=== PATIENT | female | born 1995 | race American Indian/Alaskan Native ===

== ENCOUNTER 2018-08-05 11:54 | Emergency (ER) | payer OTHER ==
--- NOTE | 2018-08-05 13:02 | Emergency Department Report ---
- General Chief complaint: Skin/Abscess/Foreign Body Stated complaint: CHEST PAIN/R BREAST LUMP Time Seen by Provider: 08/05/18 12:45 Source: patient Mode of arrival: Ambulatory Limitations: No Limitations - History of Present Illness Initial comments: 23-year-old female presents to ED with painful knot underneath her right breast 2 days. Patient denies drainage, fever. MD complaint: abscess/boil -: days(s) (2) Location: chest (R breast) Severity: mild Quality: dull Consistency: constant Improves with: none Worsens with: palpation Associated symptoms: denies other symptoms Treatments Prior to Arrival: none - Related Data Previous Rx's Medication Instructions Recorded Last Taken Type metroNIDAZOLE [Flagyl] 500 mg PO BID #14 tablet 12/06/13 Unknown Rx Ibuprofen [Motrin 800 MG tab] 800 mg PO Q6H PRN #30 tablet 08/12/14 Unknown Rx oxyCODONE /ACETAMINOPHEN [Percocet 1 tab PO Q4HR #30 tablet 08/12/14 Unknown Rx 5/325 mg] HYDROcodone/APAP 5-325 [[place] 1 each PO Q6HR PRN #14 tablet 02/17/15 Unknown Rx 5/325] Ibuprofen [Motrin] 800 mg PO Q8HR PRN #60 tablet 02/17/15 Unknown Rx Fluconazole [Diflucan TAB] 150 mg PO ONCE #1 tablet 08/05/18 Unknown Rx Naproxen [Naprosyn] 500 mg PO BID #20 tablet 08/05/18 Unknown Rx Sulfamethoxazole/Trimethoprim 1 each PO BID #14 tablet 08/05/18 Unknown Rx [Bactrim DS TAB] Allergies Allergy/AdvReac Type Severity Reaction Status Date / Time No Known Allergies Allergy Verified 08/05/18 11:55 Abscess Boil HPI - HPI Chief Complaint: Skin/Abscess/Foreign Body Stated Complaint: CHEST PAIN/R BREAST LUMP Time Seen by Provider: 08/05/18 12:45 Home Medications: Previous Rx's Medication Instructions Recorded Last Taken Type metroNIDAZOLE [Flagyl] 500 mg PO BID #14 tablet 12/06/13 Unknown Rx Ibuprofen [Motrin 800 MG tab] 800 mg PO Q6H PRN #30 tablet 08/12/14 Unknown Rx oxyCODONE /ACETAMINOPHEN [Percocet 1 tab PO Q4HR #30 tablet 08/12/14 Unknown Rx 5/325 mg] HYDROcodone/APAP 5-325 [[place] 1 each PO Q6HR PRN #14 tablet 02/17/15 Unknown Rx 5/325] Ibuprofen [Motrin] 800 mg PO Q8HR PRN #60 tablet 02/17/15 Unknown Rx Fluconazole [Diflucan TAB] 150 mg PO ONCE #1 tablet 08/05/18 Unknown Rx Naproxen [Naprosyn] 500 mg PO BID #20 tablet 08/05/18 Unknown Rx Sulfamethoxazole/Trimethoprim 1 each PO BID #14 tablet 08/05/18 Unknown Rx [Bactrim DS TAB] Allergies/Adverse Reactions: Allergies Allergy/AdvReac Type Severity Reaction Status Date / Time No Known Allergies Allergy Verified 08/05/18 11:55 ED Review of Systems ROS: Stated complaint: CHEST PAIN/R BREAST LUMP Other details as noted in HPI Comment: All other systems reviewed and negative Constitutional: denies: chills, fever Gastrointestinal: denies: nausea, vomiting Skin: other (abscess) ED Past Medical Hx - Past Medical History Previous Medical History?: No Hx Hypertension: No Hx Heart Attack/AMI: No Hx Diabetes: No Hx Deep Vein Thrombosis: No Hx Liver Disease: No Hx Renal Disease: No Hx Sickle Cell Disease: No Hx Seizures: No Hx Asthma: No Hx COPD: No Hx HIV: No - Surgical History Additional Surgical History: X2 - Social History Smoking Status: Current Every Day Smoker Substance Use Type: Alcohol, Marijuana - Medications Home Medications: Home Medications Medication Instructions Recorded Confirmed Last Taken Type metroNIDAZOLE [Flagyl] 500 mg PO BID #14 tablet 12/06/13 08/12/14 Unknown Rx Ibuprofen [Motrin 800 MG tab] 800 mg PO Q6H PRN #30 tablet 08/12/14 Unknown Rx oxyCODONE /ACETAMINOPHEN [Percocet 1 tab PO Q4HR #30 tablet 08/12/14 Unknown Rx 5/325 mg] HYDROcodone/APAP 5-325 [[place] 1 each PO Q6HR PRN #14 tablet 02/17/15 Unknown Rx 5/325] Ibuprofen [Motrin] 800 mg PO Q8HR PRN #60 tablet 02/17/15 Unknown Rx Fluconazole [Diflucan TAB] 150 mg PO ONCE #1 tablet 08/05/18 Unknown Rx Naproxen [Naprosyn] 500 mg PO BID #20 tablet 08/05/18 Unknown Rx Sulfamethoxazole/Trimethoprim 1 each PO BID #14 tablet 08/05/18 Unknown Rx [Bactrim DS TAB] ED Physical Exam - General Limitations: No Limitations General appearance: alert, in no apparent distress - Head Head exam: Present: atraumatic, normocephalic - Eye Eye exam: Present: normal appearance - ENT ENT exam: Present: mucous membranes moist - Neck Neck exam: Present: normal inspection - Respiratory Respiratory exam: Present: normal lung sounds bilaterally. Absent: respiratory distress - Cardiovascular Cardiovascular Exam: Present: normal rhythm, bradycardia - GI/Abdominal GI/Abdominal exam: Present: soft. Absent: distended, tenderness - Extremities Exam Extremities exam: Present: normal inspection - Neurological Exam Neurological exam: Present: alert, oriented X3 - Psychiatric Psychiatric exam: Present: normal affect, normal mood - Skin Skin exam: Present: other (small area of induration under right breast, tender, mild erythema, no drainage present) ED Course Vital Signs 08/05/18 12:22 Temperature 98.3 F Pulse Rate 57 L Respiratory 20 Rate Blood Pressure 121/55 O2 Sat by Pulse 100 Oximetry ED Medical Decision Making - Differential Diagnosis cellulitis, abscess Critical care attestation.: If time is entered above; I have spent that time in minutes in the direct care of this critically ill patient, excluding procedure time. ED Disposition Clinical Impression: Cellulitis of right breast Disposition: DC-01 TO HOME OR SELFCARE Is pt being admited?: No Condition: Stable Instructions: Cellulitis (ED) Prescriptions: Sulfamethoxazole/Trimethoprim [Bactrim DS TAB] 1 each PO BID #14 tablet Fluconazole [Diflucan TAB] 150 mg PO ONCE #1 tablet Naproxen [Naprosyn] 500 mg PO BID #20 tablet Referrals: [facility] [Provider Group] - 3-5 Days Time of Disposition: 13:02
== END 2018-08-05 13:20 | disposition home or self-care (01) ==
LOC: ED 11:54
CPT/HCPCS: 99282

== ENCOUNTER 2018-08-19 13:44 | Emergency (ER) | payer OTHER ==
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
[2018-08-19] MEDS ORDERED: TORADOL IM ONE (16:26)
[2018-08-19] MEDS ORDERED: FLEXERIL PO ONE (16:26)
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
[2018-08-19 19:55] VITALS: BP 126/66
== END 2018-08-19 18:21 | disposition home or self-care (01) ==
LOC: ED 13:44
DX: M48.02 Spinal stenosis, cervical region (principal); M54.89 Other dorsalgia; V89.2XXA Person injured in unspecified motor-vehicle accident, traffic, initial encounter; Y93.89 Activity, other specified; Y92.410 Unspecified street and highway as the place of occurrence of the external cause; Y99.8 Other external cause status
CPT/HCPCS: 36415; 72040; 72072; 72100; 72125; 84703; 96372; 99284; J1885

== ENCOUNTER 2021-07-01 17:30 | Outpatient (CLI) | payer MEDICAID ==
[2021-07-01 17:55] VITALS: BP 121/72
[2021-07-01] MEDS ORDERED: LACTATED RINGERS 1,000 ML IV ONE (18:09)
--- NOTE | 2021-07-01 19:25 | Ultrasound Report ---
ULTRASOUND BIOPHYSICAL PROFILE INDICATION / CLINICAL INFORMATION: f/u fall. Pelvic pain and swelling injury COMPARISON: None available. FINDINGS: BREATHING MOVEMENT = 2 GROSS BODY MOVEMENT = 2 TONE = 2 QUALITATIVE AMNIOTIC FLUID VOLUME = 2 TOTAL BIOPHYSICAL SCORE = 8/8 AMNIOTIC FLUID INDEX (cm) = 11.6 PRESENTATION: Breech. HEART RATE (beats per minute): 159 IMPRESSION: 1. biophysical profile = 12/28 the placenta appears posterior and fundal Signer Name: Terrell Gutierres MD Signed: 07/01/2021 7:20 PM Workstation Name: [id number]
== END 2021-07-01 21:25 | disposition home or self-care (01) ==
LOC: TRG 17:30 → APU 17:51 → TRG 21:25
PROVIDERS: ATTEND Obstetrics & Gynecology
DX: Z34.93 Encounter for supervision of normal pregnancy, unspecified, third trimester (principal); Z3A.30 30 weeks gestation of pregnancy
CPT/HCPCS: 76815; 76819

== ENCOUNTER 2021-08-16 22:16 | Inpatient (IN) | payer MEDICAID ==
[2021-08-16] MEDS ORDERED: LACTATED RINGERS 1,000 ML ONE (22:35)
[2021-08-16] MEDS ORDERED: BICITRA ORAL LIQD 30ML PO ONE (23:18)
[2021-08-16] MEDS ORDERED: FAMOTIDINE 20 MG/2 ML INJ IV ONE (23:18)
[2021-08-16] MEDS ORDERED: METOCLOPRAMIDE 10 MG/2 ML INJ IV ONE (23:18)
[2021-08-16] MEDS ORDERED: fentaNYL 100 MCG/2 ML INJ IV PRN (23:22)
[2021-08-16] MEDS ORDERED: TERBUTALINE 1 MG/1 ML INJ SUB-Q PRN (23:22)
[2021-08-16] MEDS ORDERED: ACETAMINOPHEN 325 MG TAB PO PRN (23:22)
[2021-08-16] MEDS ORDERED: LIDOCAINE (2%) 20 MG/1 ML VIAL 20 ML MDV INFILTRATI ONE (23:22)
[2021-08-16] MEDS ORDERED: METHYLERGONOVINE MALEATE 0.2 MG/ML VIAL IM PRN (23:22)
[2021-08-16] MEDS ORDERED: CARBOPROST TROMETHAMINE 250 MCG/1 ML INJ IM PRN (23:22)
[2021-08-16] MEDS ORDERED: miSOPROStol 200 MCG TAB PR PRN (23:22)
[2021-08-16] MEDS ORDERED: ePHEDrine SULFATE 50 MG/1 ML INJ IV PRN (23:22)
[2021-08-16] MEDS ORDERED: LOPERAMIDE 2 MG CAP PO PRN (23:22)
[2021-08-16] MEDS ORDERED: NalbUPHINE 10 MG/1 ML INJ IV PRN (23:22)
[2021-08-16] MEDS ORDERED: OXYTOCIN 10 UNIT/1 ML INJ IM PRN (23:22)
[2021-08-16 23:27] LABS: Hematocrit 35.4 % (30.3-42.9); Hemoglobin 11.4 gm/dl (10.1-14.3); Mean Corpuscular HGB Conc 32 % (30-34); Mean Corpuscular Volume 82 fl (79-97); Platelet Count 186 K/mm3 (140-440); Red Blood Count 4.34 M/mm3 (3.65-5.03); Red Cell Distribution Width 15.5 % (13.2-15.2)
[2021-08-16] MEDS ORDERED: LACTATED RINGERS 1,000 ML IV SCH ×2 (23:30)
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
[2021-08-16] MEDS ORDERED: ceFAZolin/Water 2 GM/20 ML 2 GM/20 ML SYRINGE IV NR (23:45)
[2021-08-16] MEDS ORDERED: OXYTOCIN DRIP 30 UNITS/500 ML BAG IV SCH (23:45)
[2021-08-16 23:49] LABS: Alanine Aminotransferase 13 units/L (7-56); Albumin 3.3 g/dL (3.9-5); Blood Urea Nitrogen 5 mg/dL (7-17); Calcium 8.8 mg/dL (8.4-10.2); Hemolysis Index 4
[2021-08-16 23:50] LABS: BUN/Creatinine Ratio 10
[2021-08-17] MEDS ORDERED: ONDANSETRON 4 MG/2 ML INJ IV PRN ×2 (00:38→01:43)
[2021-08-17] MEDS ORDERED: PROMETHAZINE 25 MG TAB PO PRN (00:38)
[2021-08-17] MEDS ORDERED: PROMETHAZINE 25 MG RECT SUPP PR PRN (00:38)
[2021-08-17] MEDS ORDERED: NalbUPHINE 10 MG/1 ML INJ IV PRN (00:38)
[2021-08-17] MEDS ORDERED: diphenhydrAMINE 50 MG/ML VIAL IV PRN (00:38)
[2021-08-17] MEDS ORDERED: NALOXONE 0.4 MG/1 ML INJ IV PRN ×2 (00:38→01:43)
--- NOTE | 2021-08-17 01:01 | Anesthesia Day of Surgery ---
Anesthesia Day of Surgery - Day of Surgery Patient Examined: Yes Patient H&P Reviewed: Yes Patient is NPO: Yes Beta Blockers: No Cardiac Clearance: No Pulmonary Clearance: No Carmine's Test: N/A
--- NOTE | 2021-08-17 01:02 | Anesthesia Consultation ---
Anesthesia Consult and Med Hx Date of service: 08/17/21 - Airway Anesthetic Teeth Evaluation: Good ROM Head & Neck: Adequate Mental/Hyoid Distance: Adequate Mallampati Class: Class III Intubation Access Assessment: Possibly Difficult - Pulmonary Exam CTA: Yes - Cardiac Exam Cardiac Exam: RRR - Pre-Operative Health Status ASA Pre-Surgery Classification: ASA2, Emergency Proposed Anesthetic Plan: Spinal Nerve Block: TAP - Pulmonary Hx Smoking: No Hx Asthma: Yes COPD: No Hx Pneumonia: No Hx Sleep Apnea: No - Cardiovascular System Hx Hypertension: No Hx Coronary Artery Disease: No Hx Heart Attack/AMI: No Hx Angina: No - Central Nervous System Hx Seizures: No Hx Psychiatric Problems: No - Gastrointestinal Hx Gastroesophageal Reflux Disease: No - Endocrine Hx Renal Disease: No Hx End Stage Renal Disease: No Hx Liver Disease: No Hx Insulin Dependent Diabetes: No Hx Non-Insulin Dependent Diabetes: No Hx Hypothyroidism: No Hx Hyperthyroidism: No - Hematic Hx Anemia: No Hx Sickle Cell Disease: No - Other Systems Hx Alcohol Use: No Hx Obesity: Yes - Additional Comments Anesthesia Medical History Comments: previous c/s x2
[2021-08-17] MEDS ORDERED: BUPIVACAINE/PF (0.5%) 5 MG/1 ML 30 ML VIAL INFILTRATI ONE (01:08)
[2021-08-17] MEDS ORDERED: dexAMETHasone 20 MG/5 ML VIAL ONE (01:08)
[2021-08-17] MEDS ORDERED: ONDANSETRON 4 MG/2 ML INJ ONE (01:08)
[2021-08-17] MEDS ORDERED: SENNOSIDES 8.6 MG TAB PO PRN (01:43)
[2021-08-17] MEDS ORDERED: WITCH HAZEL/ GLYCERIN PAD TP PRN (01:43)
[2021-08-17] MEDS ORDERED: LANOLIN/ZINC/DIMETHICONE (LANSINOH) 7 GM TP PRN (01:43)
[2021-08-17] MEDS ORDERED: HYDROCORTISONE 25 MG RECTAL SUPP PR PRN (01:43)
[2021-08-17] MEDS ORDERED: IBUPROFEN 600 MG TAB PO PRN (01:43)
[2021-08-17] MEDS ORDERED: MAGNESIUM HYDROXIDE (MOM) ORAL LIQD UDC PO PRN (01:43)
--- NOTE | 2021-08-17 01:53 | Ultrasound Report ---
US OB BPP wo non-stress, US OB limited INDICATION / CLINICAL INFORMATION: BPP, ALE, PLACENTA COMPARISON: None available. TECHNIQUE: Using a transcutaneous probe, multiple grayscale, color Doppler, and spectral Doppler imag es of the uterus and fetus were captured and stored. In addition, biophysical profile was performed with scoring of multiple biophysical variables includi ng respiratory motion, motion, posture and tone, as well as qualitative amniotic fluid vo lume was performed. FINDINGS: The biophysical profile score is 8 of 8, within normal limits. heart rate 145 bpm. Based on last menstrual period of 11/29/2020, the estimated date of delivery is 09/05/2021 with estimat ed gestational age of 37 weeks 1 day. Single intrauterine fetus in cephalic position is demonstrated. heart rate 145 bpm. The amniotic fluid index is within normal limits measuring 7.4 cm. Fundal grade 2 placenta is demonstrated. The seminal margin appears intact. IMPRESSION: 1. Normal biophysical profile score, 8 out of 8. 2. Fundal placenta without evidence of placental abruption. 3. Amniotic fluid index low end of normal. Signer Name: Evin Allen II, MD Signed: 08/17/2021 1:48 AM Workstation Name: [id number]
[2021-08-17] MEDS ORDERED: OXYTOCIN DRIP 30 UNITS/500 ML BAG IV SCH (02:00)
[2021-08-17] MEDS ORDERED: PHENYLEPHRINE/NS 1,000 MCG/10 ML SYRINGE (OR USE) IV ONE (02:03)
[2021-08-17] MEDS ORDERED: ePHEDrine SULFATE 50 MG/1 ML INJ ONE (02:03)
[2021-08-17] MEDS ORDERED: SODIUM CHLORIDE 0.9% IRR 1,500 ML BOTTLE IR ONE (02:32)
[2021-08-17] MEDS ORDERED: WATER FOR IRRIG STERILE 1,500 ML BOTTLE IR ONE (02:32)
[2021-08-17] MEDS ORDERED: LACTATED RINGERS 1,000 ML ONE (03:55)
--- NOTE | 2021-08-17 04:37 | Procedure Note ---
OB Delivery Note - Delivery Date of Delivery: 08/17/21 Surgeon: SHIRA DUMONT Estimated blood loss: other (765cc) - Section Preop diagnosis: repeat , other (Premature rupture of membranes, H/O Hemorrhage, Morbid Obesity) Postop diagnosis: same section procedure: repeat low transverse Disposition: floor Complications: none Narrative: Date: 08/17/21 Surgeon: Shira Dumont MD Preop Dx: IUP at 37.1wks, H/O C/Section x2; H/O hemorrhage with last section; Premature rupture of membranes, Morbid Obesity Postop Dx: same and intraabdominal adhesions Procedure : Repeat low transverse section with lysis of adhesions Anesthesia: Spinal Intake: 1500cc crystalloids Output: 400cc EBL: 765cc QBL by nurse After the risks, benefits and alternatives of procedure discussed, patient signed consents and was taken to the operating room with shultz cath already placed in triage by nurse and clear urine draining. Pt was given spinal anesthesia. After same was adequate, patient was prepped and draped in the usual sterile fashion. Pt was given prophylactic antibiotic per protocol and time out was done Pfannenstiel skin incision was made and taken sharply to the fascia and the incision extended using electrocautery. Superior edge of the fascia was grasped with ike clamps and the rectus muscle using electrocautery. Lower portion of the fascia also with electrocautery as well. Rectus muscle in the midline and Peritoneal cavity entered sharply thru thick scar tissue then lysis of intraabdominal adhesion and incision extended upwards with good visualization of the bladder. Marcio retractor placed. The bladder flap was created sharply using metzenbaum scissors. Lower uterine segment then entered transversely and amniotic sac entered using allys clamps with scant fluid. Uterine incision extended using bandage scissors. delivered, bulb suctioned, cord clamped and baby handed to waiting pediatricians. Placenta then delivered completely and uterine cavity cleared of all clots and debri. The uterus was not exteriorized and closed in 2 layers using 0-monocryl suture in a running locked fashion and then an additional layer of imbrication suture. Excellent hemostasis noted. The gutters were cleared of clots and debri and anterior peritoneum closed using 0-vicryl with scar tissue and rectus muscle all in one in a continuous fashion. Rectus fascia closed with 0-vicryl suture in a running fashion and subcutaneous tissue copiously irrigated with normal saline and re-approximated using 3-0 vicryl suture in a subcutaneous fashion. Excellent hemostasis remains. The skin was closed with 4-0 monocryl suture and steristrips placed with pressure dressing. Sponge, lap, instrument and needle counts x4 were normal. Patient tolerated the procedure well and was taken to recovery room stable. Findings: Viable male , APGARS 8/9 and weight 3560g. Scant clear amniotic fluid. Normal uterus, tubes and ovaries. - A at 1 minute: 8 at 5 minutes: 9 Gender: Male (wt 3560g; scant clear fluid)
--- NOTE | 2021-08-17 04:44 | Progress Note ---
Spinal Anesthesia Block - Spinal Anesthesia Block Start Time: 01:45 Stop Time: 01:50 Performed by:: AVNI CANDELARIA Procedure: Spinal anesthesia block is being performed for [c/s]. H&P, labs have been reviewed. Patient's questions and concerns have been answered. Informed consent has been performed. Timeout has was performed. Patient in sitting position on side of bed. Sterile prep and drape was performed. 3 mL 1% lidocaine skin wheal at L [3]-L [4]. Needle introducer advanced. 24-gauge spinal needle advanced, [+] CSF [-] blood. [Marcaine 10mg and Precedex 5mcg] Spinal dose was given. All needles removed. Patient tolerated procedure well.
[2021-08-17] MEDS: HYDROmorphone 1 MG/1 ML INJ IV PRN ×2 (08:03→19:51)
[2021-08-17] MEDS: oxyCODONE /ACETAMINOPHEN 5-325MG TAB PO PRN (09:48)
[2021-08-17] MEDS: PRENATAL VIT27-FE FUMARATE-FOLIC ACID VIT TAB PO SCH (09:48)
[2021-08-17] MEDS: FERROUS SULFATE 325 MG TAB PO SCH (09:48)
--- NOTE | 2021-08-17 11:56 | Post Anesthesia Evaluation ---
- Post Anesthesia Evaluation Patient Participated: Yes Airway Patent: Yes Stable Respiratory Function: Yes Nausea/Vomiting: No Temp > 96.8F: Yes Pain Manageable: Yes Adequeate Hydration: Yes Anesthesia Complications: No Block Receding Appropriately: Yes Patient on Ventilator: No
[2021-08-17 17:24] LABS: Bilirubin,Urine NEG (Negative); Blood,Urine LG (Negative); Mucus,Urine FEW /HPF; Urobilinogen,Urine < 2.0 mg/dL (<2.0)
[2021-08-17 17:25] LABS: Amphetamine Screen,Urine Negative; Benzodiazepines Screen,Urine Negative; Cannabinoid Screen,Urine Negative; Cocaine Screen,Urine Negative; Methadone Screen,Urine Negative; Opiate Screen,Urine Negative
[2021-08-17 17:29] LABS: Color,Urine Yellow (Yellow)
[2021-08-17 18:37] LABS: Hematocrit 33.6 % (30.3-42.9)
[2021-08-17] MEDS: SIMETHICONE 80 MG CHEW TAB PO PRN (22:11)
[2021-08-18] MEDS: IBUPROFEN 800 MG TAB PO PRN ×3 (04:40→21:05)
[2021-08-18] MEDS: SIMETHICONE 80 MG CHEW TAB PO PRN (04:40)
--- NOTE | 2021-08-18 09:01 | Progress Note ---
Subjective - Subjective Patient reports: appetite normal, voiding normally, pain well controlled, ambulating normally : doing well Objective - Vital Signs Latest vital signs: Vital Signs Temp Pulse Resp BP BP Pulse Ox Pulse Ox 08/18/21 00:00 98.6 F 74 18 105/78 08/17/21 20:27 98.0 F 84 18 122/81 99 08/17/21 20:10 98 08/17/21 16:15 98.2 F 74 18 108/61 100 08/17/21 13:56 98.3 F 82 18 106/66 100 Intake and Output 08/17/21 08/18/21 08/18/21 23:59 07:59 15:59 Intake Total 680 Output Total 1300 600 Balance -620 -600 Intake: Oral 680 Output: Urine 1300 600 Void 1300 600 Other: Total, Intake Amount 200 Total, Output Amount 300 600 # Voids Void 1 1 - Labs Labs: Abnormal lab results 08/16/21 Range/Units Unknown Urine WBC (Auto) 11.0 H (0.0-6.0) /HPF
--- NOTE | 2021-08-18 09:03 | Progress Note ---
Assessment and Plan Postop day 1 Encourage ambulation Advance diet Maternal bonding Pain meds as needed Routine postop care PE benign with incision clean dry and intact Jason Grewal MD Subjective - Subjective Date of service: 08/18/21 Patient reports: appetite normal, voiding normally, pain well controlled, ambulating normally [place]: doing well Objective - Vital Signs Latest vital signs: Vital Signs Temp Pulse Resp BP BP Pulse Ox Pulse Ox 08/18/21 00:00 98.6 F 74 18 105/78 08/17/21 20:27 98.0 F 84 18 122/81 99 08/17/21 20:10 98 08/17/21 16:15 98.2 F 74 18 108/61 100 08/17/21 13:56 98.3 F 82 18 106/66 100 Intake and Output 08/17/21 08/18/21 08/18/21 23:59 07:59 15:59 Intake Total 680 Output Total 1300 600 Balance -620 -600 Intake: Oral 680 Output: Urine 1300 600 Void 1300 600 Other: Total, Intake Amount 200 Total, Output Amount 300 600 # Voids Void 1 1 - Exam Breasts: Present: normal Cardiovascular: Present: Normal S1, Normal S2 Abdomen: Present: normal appearance Vulva: both: normal Uterus: Present: fundal height below umbilicus Incision: Present: normal, dry, intact, dressed - Labs Labs: Abnormal lab results 08/16/21 Range/Units Unknown Urine WBC (Auto) 11.0 H (0.0-6.0) /HPF
[2021-08-18] MEDS: PRENATAL VIT27-FE FUMARATE-FOLIC ACID VIT TAB PO SCH (09:44)
[2021-08-18] MEDS: FERROUS SULFATE 325 MG TAB PO SCH (09:44)
[2021-08-18] MEDS: oxyCODONE /ACETAMINOPHEN 5-325MG TAB PO PRN (09:45)
[2021-08-19] MEDS: IBUPROFEN 800 MG TAB PO PRN (05:12)
--- NOTE | 2021-08-19 10:20 | Progress Note ---
Assessment and Plan PODD#2 doing well 1. Routine post op care 2. Dressing removed and incision C/D/I with steristrips 3. Discharge pt home later if she remains stable Subjective Date of service: 08/19/21 Principal diagnosis: POD#2 C/S Interval history: pt has no complaints and desires to go home. Pain controlled with meds. Voidinng and had flatus and BM without difficulty. Tolerates diet. Pt is bottle feeding. Vag bleed small Objective - Constitutional Vitals: Vital Signs - 12hr 08/19/21 08/19/21 08/19/21 00:39 08:00 08:22 Temperature 98.0 F 97.6 F Pulse Rate 86 63 Respiratory 20 18 Rate Blood Pressure 120/62 127/44 O2 Sat by Pulse 99 100 Oximetry O2 Sat by Pulse 100 Oximetry [ Bilateral Throughout] General appearance: Present: no acute distress - Neck Neck: normal ROM - Respiratory Respiratory effort: normal - Cardiovascular Rhythm: regular Extremities: No edema - Gastrointestinal General gastrointestinal: Present: soft, non-tender, other (Incision with steristrips C/D/I) - Integumentary Integumentary: warm, dry - Neurologic Neurologic: moves all extremities - Psychiatric Psychiatric: cooperative - Labs CBC & Chem 7: 08/17/21 18:09 08/16/21 23:00 Medications & Allergies - Medications Allergies/Adverse Reactions: Allergies No Known Allergies Allergy (Verified 08/05/18 11:55) Home Medications: Home Medications Medication Instructions Recorded Confirmed Last Taken Type Ibuprofen [Motrin] 800 mg PO Q8HR PRN 21 Days #40 08/17/21 Unknown Rx tablet oxyCODONE /ACETAMINOPHEN [Percocet 1 tab PO Q4HR PRN 21 Days #30 tab 08/17/21 Unknown Rx 5/325] Active Medications: Generic Name Dose Route Start Last Admin Trade Name Freq PRN Reason Stop Dose Admin Acetaminophen 650 mg 08/16/21 23:22 Acetaminophen 325 Mg Tab PO Q4H PRN Pain, Mild (1-3) Carboprost Tromethamine 250 mcg 08/16/21 23:22 Carboprost Tromethamine 250 Mcg/1 Ml Inj IM ONCE PRN Uterine Bleeding Diphenhydramine HCl 12.5 mg 08/17/21 00:38 Diphenhydramine 50 Mg/Ml Vial IV Q2H PRN Itching Ephedrine Sulfate 10 mg 08/16/21 23:22 Ephedrine Sulfate 50 Mg/1 Ml Inj IV Q2M PRN Hypotension Fentanyl 100 mcg 08/16/21 23:22 Fentanyl 100 Mcg/2 Ml Inj IV Q2H PRN Pain,Severe (7-10) LABOR PAIN Ferrous Sulfate 325 mg 08/17/21 10:00 08/18/21 09:44 Ferrous Sulfate 325 Mg Tab PO 325 mg QDAY EMI Administration Hydrocortisone Acetate 25 mg 08/17/21 01:43 Hydrocortisone 25 Mg Rectal Supp DC BID PRN Hemorrhoids Hydromorphone HCl 0.5 mg 08/17/21 00:38 08/17/21 19:51 Hydromorphone 1 Mg/1 Ml Inj IV 0.5 mg Q4H PRN Administration breakthrough pain > 7/10 Lactated Ringer's 1,000 mls @ 125 mls/hr 08/16/21 23:30 08/17/21 11:35 Lactated Ringers IV 125 mls/hr DIRECT EMI Administration Oxytocin/Sodium Chloride 30 units in 500 mls @ 40 mls/hr 08/17/21 02:00 Pitocin/Ns 30 Unit/500ml IV TITR EMI Protocol Ibuprofen 600 mg 08/17/21 01:43 08/17/21 22:10 Ibuprofen 600 Mg Tab PO 600 mg Q6H PRN Administration Pain, Mild (1-3) Ibuprofen 800 mg 08/17/21 01:43 08/19/21 05:12 Ibuprofen 800 Mg Tab PO 800 mg Q6H PRN Administration Pain, Moderate (4-6) Loperamide HCl 2 mg 08/16/21 23:22 Loperamide 2 Mg Cap PO ONCE PRN give with Hemabate Magnesium Hydroxide 30 ml 08/17/21 01:43 08/18/21 12:25 Magnesium Hydroxide (Mom) Oral Liqd Udc PO 30 ml QHS PRN Administration Constip Unrelieved By Senna Methylergonovine Maleate 0.2 mg 08/16/21 23:22 Methylergonovine Maleate 0.2 Mg/Ml Vial IM ONCE PRN Uterine Bleeding Misoprostol 800 mcg 08/16/21 23:22 Misoprostol 200 Mcg Tab DC ONCE PRN Uterine Bleeding Multi-Ingredient Ointment 1 applic 08/17/21 01:43 Lanolin/Zinc/Dimethicone (Lansinoh) 7 Gm TP PRN PRN dryness/cracking Multivitamins/Iron/Calcium 1 each 08/17/21 10:00 08/18/21 09:44 [id number] Fumarate-Folic Acid Vit Tab PO 1 each QDAY EMI Administration Nalbuphine HCl 10 mg 08/16/21 23:22 Nalbuphine 10 Mg/1 Ml Inj IV Q2H PRN Pain, Moderate (4-6) Nalbuphine HCl 2.5 mg 08/17/21 00:38 Nalbuphine 10 Mg/1 Ml Inj IV Q2H PRN Itching Naloxone HCl 0.1 mg 08/17/21 01:43 Naloxone 0.4 Mg/1 Ml Inj IV Q2MIN PRN Res Rate </= 8 or 02 SAT < 92% Ondansetron HCl 4 mg 08/17/21 01:43 Ondansetron 4 Mg/2 Ml Inj IV Q8H PRN Nausea And Vomiting Oxycodone/Acetaminophen 2 tab 08/17/21 01:43 08/18/21 09:45 Oxycodone /Acetaminophen 5-325mg Tab PO 2 tab Q4H PRN Administration Pain, Moderate (4-6) Oxytocin 10 unit 08/16/21 23:22 Oxytocin 10 Unit/1 Ml Inj IM ONCE PRN Uterine Bleeding Promethazine HCl 25 mg 08/17/21 00:38 Promethazine 25 Mg Tab PO Q6H PRN Nausea And Vomiting Promethazine HCl 25 mg 08/17/21 00:38 Promethazine 25 Mg Rect Supp DC Q6H PRN Nausea And Vomiting Senna 17.2 mg 08/17/21 01:43 Sennosides 8.6 Mg Tab PO QHS PRN Constipation Simethicone 80 mg 08/17/21 01:43 08/18/21 04:40 Simethicone 80 Mg Chew Tab PO 80 mg Q6H PRN Administration Gas pain Sodium Chloride 10 ml 08/17/21 02:00 Sodium Chloride 0.9% 10 Ml Flush Syringe IV PRN PRN LINE FLUSH Terbutaline Sulfate 0.25 mg 08/16/21 23:22 Terbutaline 1 Mg/1 Ml Inj SUB-Q ONCE PRN Hyperstimulation/Hypertonicity Witch Yesy/Glycerin 1 each 08/17/21 01:43 Witch Yesy/ Glycerin Pad TP PRN PRN Hemorrhoids/cleansing/soothing
--- NOTE | 2021-08-19 10:24 | Progress Note ---
Subjective Principal diagnosis: POD#2 C/S Objective - Constitutional Vitals: Vital Signs - 12hr 08/19/21 08/19/21 08/19/21 00:39 08:00 08:22 Temperature 98.0 F 97.6 F Pulse Rate 86 63 Respiratory 20 18 Rate Blood Pressure 120/62 127/44 O2 Sat by Pulse 99 100 Oximetry O2 Sat by Pulse 100 Oximetry [ Bilateral Throughout] - Labs CBC & Chem 7: 08/17/21 18:09 08/16/21 23:00 Medications & Allergies - Medications Allergies/Adverse Reactions: Allergies No Known Allergies Allergy (Verified 08/05/18 11:55) Home Medications: Home Medications Medication Instructions Recorded Confirmed Last Taken Type Ibuprofen [Motrin] 800 mg PO Q8HR PRN 21 Days #40 08/17/21 Unknown Rx tablet oxyCODONE /ACETAMINOPHEN [Percocet 1 tab PO Q4HR PRN 21 Days #30 tab 08/17/21 Unknown Rx 5/325] Active Medications: Generic Name Dose Route Start Last Admin Trade Name Freq PRN Reason Stop Dose Admin Acetaminophen 650 mg 08/16/21 23:22 Acetaminophen 325 Mg Tab PO Q4H PRN Pain, Mild (1-3) Carboprost Tromethamine 250 mcg 08/16/21 23:22 Carboprost Tromethamine 250 Mcg/1 Ml Inj IM ONCE PRN Uterine Bleeding Diphenhydramine HCl 12.5 mg 08/17/21 00:38 Diphenhydramine 50 Mg/Ml Vial IV Q2H PRN Itching Ephedrine Sulfate 10 mg 08/16/21 23:22 Ephedrine Sulfate 50 Mg/1 Ml Inj IV Q2M PRN Hypotension Fentanyl 100 mcg 08/16/21 23:22 Fentanyl 100 Mcg/2 Ml Inj IV Q2H PRN Pain,Severe (7-10) LABOR PAIN Ferrous Sulfate 325 mg 08/17/21 10:00 08/18/21 09:44 Ferrous Sulfate 325 Mg Tab PO 325 mg QDAY EMI Administration Hydrocortisone Acetate 25 mg 08/17/21 01:43 Hydrocortisone 25 Mg Rectal Supp MD BID PRN Hemorrhoids Hydromorphone HCl 0.5 mg 08/17/21 00:38 08/17/21 19:51 Hydromorphone 1 Mg/1 Ml Inj IV 0.5 mg Q4H PRN Administration breakthrough pain > 7/10 Lactated Ringer's 1,000 mls @ 125 mls/hr 08/16/21 23:30 08/17/21 11:35 Lactated Ringers IV 125 mls/hr DIRECT EMI Administration Oxytocin/Sodium Chloride 30 units in 500 mls @ 40 mls/hr 08/17/21 02:00 Pitocin/Ns 30 Unit/500ml IV TITR [facility] Protocol Ibuprofen 600 mg 08/17/21 01:43 08/17/21 22:10 Ibuprofen 600 Mg Tab PO 600 mg Q6H PRN Administration Pain, Mild (1-3) Ibuprofen 800 mg 08/17/21 01:43 08/19/21 05:12 Ibuprofen 800 Mg Tab PO 800 mg Q6H PRN Administration Pain, Moderate (4-6) Loperamide HCl 2 mg 08/16/21 23:22 Loperamide 2 Mg Cap PO ONCE PRN give with Hemabate Magnesium Hydroxide 30 ml 08/17/21 01:43 08/18/21 12:25 Magnesium Hydroxide (Mom) Oral Liqd Udc PO 30 ml QHS PRN Administration Constip Unrelieved By Senna Methylergonovine Maleate 0.2 mg 08/16/21 23:22 Methylergonovine Maleate 0.2 Mg/Ml Vial IM ONCE PRN Uterine Bleeding Misoprostol 800 mcg 08/16/21 23:22 Misoprostol 200 Mcg Tab MD ONCE PRN Uterine Bleeding Multi-Ingredient Ointment 1 applic 08/17/21 01:43 Lanolin/Zinc/Dimethicone (Lansinoh) 7 Gm TP PRN PRN dryness/cracking Multivitamins/Iron/Calcium 1 each 08/17/21 10:00 08/18/21 09:44 [id number] Fumarate-Folic Acid Vit Tab PO 1 each QDAY EMI Administration Nalbuphine HCl 10 mg 08/16/21 23:22 Nalbuphine 10 Mg/1 Ml Inj IV Q2H PRN Pain, Moderate (4-6) Nalbuphine HCl 2.5 mg 08/17/21 00:38 Nalbuphine 10 Mg/1 Ml Inj IV Q2H PRN Itching Naloxone HCl 0.1 mg 08/17/21 01:43 Naloxone 0.4 Mg/1 Ml Inj IV Q2MIN PRN Res Rate </= 8 or 02 SAT < 92% Ondansetron HCl 4 mg 08/17/21 01:43 Ondansetron 4 Mg/2 Ml Inj IV Q8H PRN Nausea And Vomiting Oxycodone/Acetaminophen 2 tab 08/17/21 01:43 08/18/21 09:45 Oxycodone /Acetaminophen 5-325mg Tab PO 2 tab Q4H PRN Administration Pain, Moderate (4-6) Oxytocin 10 unit 08/16/21 23:22 Oxytocin 10 Unit/1 Ml Inj IM ONCE PRN Uterine Bleeding Promethazine HCl 25 mg 08/17/21 00:38 Promethazine 25 Mg Tab PO Q6H PRN Nausea And Vomiting Promethazine HCl 25 mg 08/17/21 00:38 Promethazine 25 Mg Rect Supp MD Q6H PRN Nausea And Vomiting Senna 17.2 mg 08/17/21 01:43 Sennosides 8.6 Mg Tab PO QHS PRN Constipation Simethicone 80 mg 08/17/21 01:43 08/18/21 04:40 Simethicone 80 Mg Chew Tab PO 80 mg Q6H PRN Administration Gas pain Sodium Chloride 10 ml 08/17/21 02:00 Sodium Chloride 0.9% 10 Ml Flush Syringe IV PRN PRN LINE FLUSH Terbutaline Sulfate 0.25 mg 08/16/21 23:22 Terbutaline 1 Mg/1 Ml Inj SUB-Q ONCE PRN Hyperstimulation/Hypertonicity Witch Yesy/Glycerin 1 each 08/17/21 01:43 Witch Yesy/ Glycerin Pad TP PRN PRN Hemorrhoids/cleansing/soothing
--- NOTE | 2021-08-19 10:25 | Discharge Summary ---
Providers - Providers Date of Admission: 08/16/21 23:22 Attending physician: DOE DUMONT Primary care physician: DOE DUMONT Hospitalization Reason for admission: rupture of membranes, IUP at term Delivery: (repeat ) Procedure: repeat low transverse Episiotomy: none Laceration: none Incision: normal Other procedures: none complications: none Discharge diagnosis: IUP at term delivered (repeat section) [place] baby: male Pertinent studies: Term pt with PROM and previous section [facility]. Declined TOLAC. Repeat C/Section done uncomplicated. course uneventful and pt desired to go home on POD#2. Condition at discharge: Good Disposition: 01 HOME / SELF CARE / HOMELESS - Discharge Diagnoses (1) Status post repeat low transverse section Status: Acute (2) Term , repeat Status: Acute (3) PROM (premature rupture of membranes) Status: Acute Plan - Discharge Medications Prescriptions: Ibuprofen [Motrin] 800 mg PO Q8HR PRN 21 Days #40 tablet PRN Reason: Pain, Moderate (4-6) oxyCODONE /ACETAMINOPHEN [Percocet 5/325] 1 tab PO Q4HR PRN 21 Days #30 tab PRN Reason: Pain , Severe (7-10) - Provider Discharge Summary Additional instructions: [] Smoking cessation referral if applicable(refer to patient education folder for contact #) [] Refer to [facility] Booklet Call your doctor immediately for: * Fever > 100.5 * Heavy vaginal bleeding ( >1 pad per hour) * Severe persistent headache * Shortness of breath * Reddened, hot, painful area to leg or breast * Drainage or odor from incision. * Keep incision clean and dry at all times and follow doctor's instructions regarding bathing/showering - Follow up plan Follow up: DOE DUMONT MD [Primary Care Provider] - 7 Days
[2021-08-19] MEDS: FERROUS SULFATE 325 MG TAB PO SCH (10:37)
[2021-08-19] MEDS: PRENATAL VIT27-FE FUMARATE-FOLIC ACID VIT TAB PO SCH (10:37)
[2021-08-19 12:26] VITALS: BP 124/60
== END 2021-08-19 13:20 | disposition home or self-care (01) | DRG 766 ==
LOC: TRG 22:16 → EDBD 22:16 → APU 22:17 → EDBD 23:22 → APU 23:22 → TRG 23:22 → APU 08-17 05:00 → OB 08-17 06:40
PROVIDERS: ADMIT Obstetrics & Gynecology; ATTEND Obstetrics & Gynecology
PROC: 10D00Z1 Extraction of Products of Conception, Low, Open Approach (ICD-10-PCS; principal; 2021-08-17)
DX: O42.02 Full-term premature rupture of membranes, onset of labor within 24 hours of rupture (principal); O34.211 Maternal care for low transverse scar from previous cesarean delivery; Z3A.37 37 weeks gestation of pregnancy; Z37.0 Single live birth; Z20.822 Contact with and (suspected) exposure to COVID-19; O99.214 Obesity complicating childbirth; O99.02 Anemia complicating childbirth; D57.3 Sickle-cell trait; E66.01 Morbid (severe) obesity due to excess calories; O99.62 Diseases of the digestive system complicating childbirth; K66.0 Peritoneal adhesions (postprocedural) (postinfection)
CPT/HCPCS: 36415; 76815; 76819; 80053; 80307; 81001; 84112; 85014; 85018; 85027; 86592; 86850; 86900; 86901; 87086; G0378; J3490; J7121; J0690; J1100; J1170; J2370; J2405; J2765; J7120; U0003